=== PATIENT | male | born 1955 | race Caucasian/White ===

== ENCOUNTER → 2019-04-08 | Outpatient (CLI) | payer BC, OTHER | END | disposition home or self-care (01) | LOC: RAH 08:24 | PROVIDERS: ATTEND Family Medicine | DX: K76.0 Fatty (change of) liver, not elsewhere classified (principal) | CPT/HCPCS: 76700 ==

== ENCOUNTER 2022-10-23 05:20 | Emergency (ER) | payer BC, MEDICARE ==
[~2022-10-23] VITALS: Ht 177.8 cm; Wt 108.0 kg
[2022-10-23 05:49] LABS: BASOPHILS % (AUTO) 0.5 % (0.0-5.0); EOSINOPHILS % (AUTO) 4.4 % (0.0-8.0); HEMATOCRIT 43.8 % (42-54); LYMPHOCYTES % (AUTO) 28.3 % (21.0-51.0); MEAN CORPUSCULAR HEMOGLOBIN 28.4 pg (27.0-33.0); MEAN CORPUSCULAR HGB CONC 31.7 g/dL (32.0-36.0); MEAN CORPUSCULAR VOLUME 89.4 fL (79-99); MONOCYTES % (AUTO) 10.4 % (3.0-13.0); PLATELET COUNT (AUTO) 246 K/uL (130-400); RED CELL DISTRIBUTION WIDTH 13.2 % (11.0-15.5); WHITE BLOOD COUNT (AUTO) 7.5 K/uL (4.8-10.8)
[2022-10-23] MEDS ORDERED: MECLIZINE HCL 25 MG TABLET PO ONE (06:00)
[2022-10-23 06:11] LABS: ALBUMIN 3.8 g/dL (3.5-5.0); CREATININE 1.1 mg/dL (0.5-1.5); MAGNESIUM 1.9 mg/dL (1.80-2.40); POTASSIUM 4.1 mmol/L (3.5-5.1); TOTAL PROTEIN, SERUM 7.5 g/dL (6.0-8.3)
[2022-10-23] MEDS ORDERED: IOHEXOL 350 MG/ML 100ML INFUS..BTL IV ONE (06:15)
[2022-10-23 06:21] LABS: INR 0.93 (0.85-1.15); PROTHROMBIN TIME 10.8 SEC (9.6-11.6)
[2022-10-23 06:22] LABS: PARTIAL THROMBOPLASTIN TIME 25.6 SEC (26.3-35.5)
[2022-10-23 06:47] LABS: CREATINE KINASE, TOTAL 45 U/L (21-232)
[2022-10-23] MEDS ORDERED: MECL-262 PO (06:54)
[2022-10-23 07:11] LABS: LDL DIRECT 60 mg/dL (0-99)
[2022-10-23 07:13] VITALS: BP 135/71
== END 2022-10-23 07:22 | disposition home or self-care (01) ==
LOC: EDH 05:20
DX: R42 Dizziness and giddiness (principal); I67.1 Cerebral aneurysm, nonruptured; I65.29 Occlusion and stenosis of unspecified carotid artery; E11.9 Type 2 diabetes mellitus without complications; E78.00 Pure hypercholesterolemia, unspecified; I10 Essential (primary) hypertension; Z79.899 Other long term (current) drug therapy
CPT/HCPCS: 99285; 70450; 71045; 82550; 83721; 83735; 84484; 80053; 83880; 85025; 85610; 85730; 36415; 70496; 70498; 93005; Q9967